=== PATIENT | female | born 1965 | race Caucasian/White ===

== ENCOUNTER 2021-12-28 20:29 | Emergency (ER) | payer OTHER, SELFPAY ==
[2021-12-28 20:30] VITALS: BP 138/93; PULSE 67; RESP 15; TEMP 36.2; O2SAT 100; BMI 25.4
--- NOTE | 2021-12-28 20:48 | EX.ED.VIS.HA ---
HPI History of Present Illness Chief Complaint: Headache Informant: patient Onset/Context/Timing Onset: Today Context: Gradual Timing: Waxes and wanes Quality -Headache: Positive for Similar Prior Headaches and Throbbing Current Severity: Moderate Maximum Severity: Severe Narrative Narrative: Patient presents secondary to migraine. She states she woke at 3:00 this morning with one of her typical migraines. She initially tried ibuprofen and then woke a few hours later and took her Imitrex. She has had a total of 3 doses of Imitrex today without improvement. She also tried some Tylenol cold medicine. She denies recent URI symptoms. She denies head trauma. She does have light and sound sensitivity. She denies nausea or vomiting. [facility] Medical History Migraine Home Medications sumatriptan succinate 100 mg PO Q2H PRN 12/28/21 [History Last Taken Unknown] Allergy/AdvReac Type Severity Reaction Status Date / Time No Known Allergies Allergy Verified 12/28/21 20:31 Social History Smoking Status: Never smoker ROS ROS ED Constitutional Constitutional ED: Denies chills or fever(s) Eyes Eyes: Denies change in vision ENT ENT ED: Denies sore throat Cardiovascular Cardiovascular: Denies chest pain Respiratory/Chest Respiratory/Chest: Denies cough or dyspnea Gastrointestinal Gastrointestinal: Denies abdominal pain, nausea or vomiting Genitourinary Genitourinary ED: Denies dysuria Musculoskeletal Musculoskeletal: Denies back pain Integumentary Denies rash Neurologic Neurologic: Reports headache(s); Denies paresthesias or weakness Allergic/Immunologic Allergic/Immunologic ED: Denies urticaria EXAM Physical Exam Const Vital Signs: 12/28/21 20:30 Temperature 97.2 F L Temperature Source Temporal Pulse Rate 67 Respiratory Rate 15 Blood Pressure 138/93 H Blood Pressure Mean 108 Pulse Ox 100 Oxygen Delivery Method Room Air Positive well nourished and well developed General Appearance ED: well developed HEENT Reports normocephalic atraumatic Eyes PERRL and EOMs intact bilaterally Neck no lymphadenopathy, supple and no meningeal signs Resp normal respiratory effort and clear to auscultation bilaterally Cardio regular rate and regular rhythm GI non-tender and non-distended Palpation: soft Extremity normal to inspection Neuro oriented x3 Sensorium / Orientation: awake and alert Psych mental status grossly normal Skin Lesions: no lesions Rashes: no rashes MDM MDM MDM Narrative Medical decision making narrative: Patient given IV fluids along with Toradol, Reglan, Benadryl. Rapid COVID test is sent. Treatment and Re-Evaluation Narrative: Rapid COVID test is negative. On repeat evaluation patient feeling significantly improved. She will be discharged home with family. Discharge Plan Triage Chief Complaint: Headache ED Provider: Dominique White Dx/Rx/DC Orders Clinical Impression: Migraine Instructions: ED, Migraine (Classical) Prescriptions: No Action sumatriptan succinate 100 mg Tablet 100 mg PO Q2H PRN (Reason: Pain) RF: 0 Primary Care Provider: Nikhil Jones Referrals: Nikhil Jones MD [Primary Care Provider] - As Needed Disposition Disposition: Home, Self Care
[2021-12-28] MEDS: Ketorolac 30 MG/ML Syringe IV (20:56)
[2021-12-28] MEDS: Metoclopramide 10 MG/2 ML Vial IV (20:56)
[2021-12-28] MEDS: DiphenhydrAMINE 50 MG/ML Syringe 25 MG IV (20:56)
[2021-12-28] MEDS: 0.9% Normal Saline 1,000 ML 999 ML IV (20:56)
== END 2021-12-28 22:13 | disposition home or self-care (01) ==
PROVIDERS: Emergency Provider Emergency Medicine; PCP Family Medicine; Visit Provider Emergency Medicine
DX: G43.909 Migraine, unspecified, not intractable, without status migrainosus (principal)
CPT/HCPCS: 87811; 96361; 96374; 96375; 99283; J7030; A4216